=== PATIENT | female | born 1970 | race Caucasian/White ===

== ENCOUNTER 2020-01-05 14:12 | Outpatient (CLI) | payer OTHER, SELFPAY ==
--- NOTE | 2020-01-12 14:55 | WPDPFTINT ---
PFT Interpretation PFT Interpretation: DOS: 01/05/2020 REQUESTING: Dr Hughes REASON FOR TESTING: shortness of breath PULMONARY FUNCTION TESTS Results are reproducible. Spirometry: FEV1 is 111%, FVC 102%, FEV1% 83%, all values are normal. No bronchodilator was given. Lung volumes: TLC 96%, normal. RV 80%, no air trapping. Increased airway resistance. Diffusion: DLCO 95%, normal. Flow volume loop: Normal. IMPRESSION: Normal study. No bronchodilator was given. Shaneka Ward MD
--- NOTE | 2020-01-12 15:03 | WPDSIXMINUTE ---
Six Minute Walk Six Minute Walk: DOS: 01/05/2020 REQUESTING: Dr Hughes REASON FOR TESTING: shortness of breath SIX MINUTE WALK This test Was conducted per ATS guidelines. Initial saturation 97% and pulse 99. The patient walked for 6 minutes without stopping, heart rate increased to 138. Saturation remained 91% and above. Final saturation 98%. Pulse 106. Distance walked 1600 ft/488 m. IMPRESSION: Normal walk study, distance walked is adequate for age. No supplemental oxygen indicated.
== END 2020-01-05 14:13 | disposition home or self-care (01) ==
LOC: ANHPFT 14:14
PROVIDERS: PCP Internal Medicine; Visit Provider Nurse Practitioner
DX: R06.02 Shortness of breath (principal)
CPT/HCPCS: 94375; 94618; 94726; 94729

== ENCOUNTER 2020-02-26 09:28 | Outpatient (CLI) | payer OTHER, SELFPAY ==
--- NOTE | ~2020-02-26 | MM_ITS ---
EXAMINATION: MM screening maura BI w ana maria HISTORY: Screening TECHNIQUE: Craniocaudal and mediolateral oblique 3-D tomosynthesis images were obtained and synthetic 2-D images were generated. CAD analysis was submitted and interpreted. COMPARISON: 09/20/2015 BREAST PARENCHYMAL COMPOSITION: The breasts are heterogeneously dense, which may obscure small masses . FINDINGS: There is no evidence of suspicious mass, calcification, or architectural distortion to sugg est malignancy in either breast. There has been no suspicious interval change. IMPRESSION: 1. No mammographic evidence of malignancy. 2. Recommend routine screening mammography in one year. BI-RADS Category 1: Negative Reviewed, dictated and finalized at location A. [employer]
== END 2020-02-26 09:29 | disposition home or self-care (01) ==
LOC: ANHIMG 09:30
PROVIDERS: PCP Internal Medicine; Visit Provider Nurse Practitioner
DX: Z12.31 Encounter for screening mammogram for malignant neoplasm of breast (principal)
CPT/HCPCS: 77063; 77067

== ENCOUNTER 2020-03-09 06:54 | Outpatient (NON) | payer OTHER, SELFPAY ==
[2020-03-09 19:54] LABS: SARS-CoV-2 RNA PCR Negative
== END 2020-03-09 06:55 ==
LOC: ANHCOVIDDT 06:56
PROVIDERS: PCP Internal Medicine; Visit Provider Nurse Practitioner
DX: R68.89 Other general symptoms and signs (principal); Z20.828 Contact with and (suspected) exposure to other viral communicable diseases
CPT/HCPCS: 87635; C9803; U0003